=== PATIENT | female | born 1970 | race American Indian/Alaskan Native ===

== ENCOUNTER 2019-05-01 13:52 | Emergency (ER) | payer SELFPAY ==
[2019-05-01 14:22] VITALS: BP 123/69
--- NOTE | 2019-05-01 14:22 | Event Note ---
ED Screening Note ED Screening Note: lower back pain that began this morning this morning reaching in the closet and "felt something pop in the lower back" pt is ambulatory no numbness, weakness, no bowel/bladder incontinence pt states she is having urinary frequency PSHx partial hysterectomy This initial assessment/diagnostic orders/clinical plan/treatment(s) is/are subject to change based on patients health status, clinical progression and re- assessment by fellow clinical providers in the ED. Further treatment and workup at subsequent clinical providers discretion. Patient/guardian urged not to elope from the ED as their condition may be serious if not clinically assessed and managed. Initial orders include: UA, XR L-spine
--- NOTE | 2019-05-01 15:13 | XRay Report ---
Lumbosacral spine, 3 views INDICATION: Lower back pain for one day. COMPARISON: None. IMPRESSION: Normal alignment. Mild degenerative disc disease is identified at all levels. Moderate facet arthropathy with hypertrophy is noted at all levels. No acute osseous or soft tissue abnormali ty. Signer Name: Madi Mckoy Jr, MD Signed: 05/01/2019 3:08 PM Workstation Name: [id number]
[2019-05-01] MEDS ORDERED: MORPHINE IV ONE (15:16)
[2019-05-01] MEDS ORDERED: TORADOL IV ONE (15:16)
[2019-05-01] MEDS ORDERED: DECADRON IV ONE (15:16)
[2019-05-01 15:45] LABS: Bilirubin,Urine NEG (Negative); Blood,Urine NEG (Negative); Color,Urine Yellow (Yellow); Mucus,Urine 3+ /HPF; Urobilinogen,Urine < 2.0 mg/dL (<2.0)
--- NOTE | 2019-05-01 16:32 | Emergency Department Report ---
ED Back Pain/Injury HPI - General Chief Complaint: Back Pain/Injury Stated Complaint: BACK PAIN Time Seen by Provider: 05/01/19 14:21 Source: patient Limitations: No Limitations - History of Present Illness Initial Comments: Mrs. Mason is a very pleasant 48-year-old female without significant past medical history who injured her back today. While receiving over and bending d own to grab something off the floor of her car, she felt a pop in her back and had immediate pain. Lower central pain radiating to the sacrum. She is able to ambulate. However she has severe pain with position change. No previous history of back injury. No recent trauma. She denies fever, weight loss, drug use. Denies bowel or bladder incontinence. Pain is 10 out of 10 in severity. MD Complaint: back pain -: Sudden, This afternoon Similar Symptoms Previously: No Place: home Radiation: none Severity: severe Severity scale (0 -10): 10 Consistency: constant Worsens With: movement, sitting upright, walking Context: while lifting, turning/twisting, bending Associated Symptoms: denies other symptoms - Related Data Previous Rx's Medication Instructions Recorded Last Taken Type Cyclobenzaprine [Flexeril] 10 mg PO TID PRN #20 tablet 05/01/19 Unknown Rx Ibuprofen [Motrin 800 MG tab] 800 mg PO TID 4 Days #12 tablet 05/01/19 Unknown Rx oxyCODONE /ACETAMINOPHEN [Percocet 1 tab PO Q6HR PRN #10 tablet 05/01/19 Unknown Rx 5/325] Allergies Allergy/AdvReac Type Severity Reaction Status Date / Time No Known Allergies Allergy Unverified 05/01/19 14:23 ED Review of Systems ROS: Stated complaint: BACK PAIN Other details as noted in HPI Comment: All other systems reviewed and negative Constitutional: denies: fever, malaise Gastrointestinal: denies: abdominal pain, nausea, vomiting Musculoskeletal: back pain Neurological: denies: weakness, numbness, paresthesias ED Past Medical Hx - Past Medical History Previous Medical History?: Yes Additional medical history: slipped disc - Surgical History Past Surgical History?: Yes Hx Appendectomy: Yes Additional Surgical History: partial hysterectomy - Social History Smoking Status: Current Every Day Smoker Substance Use Type: Alcohol - Medications Home Medications: Home Medications Medication Instructions Recorded Confirmed Last Taken Type Cyclobenzaprine [Flexeril] 10 mg PO TID PRN #20 tablet 05/01/19 Unknown Rx Ibuprofen [Motrin 800 MG tab] 800 mg PO TID 4 Days #12 tablet 05/01/19 Unknown Rx oxyCODONE /ACETAMINOPHEN [Percocet 1 tab PO Q6HR PRN #10 tablet 05/01/19 Unknown Rx 5/325] ED Physical Exam - General Limitations: No Limitations General appearance: alert, in no apparent distress - Head Head exam: Present: atraumatic, normocephalic - Eye Eye exam: Present: normal appearance - ENT ENT exam: Present: mucous membranes moist - Neck Neck exam: Present: normal inspection, full ROM - Respiratory Respiratory exam: Present: normal lung sounds bilaterally. Absent: respiratory distress, wheezes, rales, rhonchi - Cardiovascular Cardiovascular Exam: Present: regular rate, normal rhythm, normal heart sounds. Absent: systolic murmur, diastolic murmur, rubs, gallop - GI/Abdominal GI/Abdominal exam: Present: soft, normal bowel sounds. Absent: distended, tenderness, guarding, rebound - Back Exam Back exam: Present: normal inspection, full ROM, muscle spasm, paraspinal tenderness. Absent: tenderness, CVA tenderness (R), CVA tenderness (L), vertebral tenderness - Neurological Exam Neurological exam: Present: alert, oriented X3 - Psychiatric Psychiatric exam: Present: normal affect, normal mood - Skin Skin exam: Present: warm, dry, intact, normal color. Absent: rash ED Course Vital Signs 05/01/19 14:21 Temperature 98.3 F Pulse Rate 84 Respiratory 18 Rate Blood Pressure 123/69 O2 Sat by Pulse 98 Oximetry ED Medical Decision Making - Medical Decision Making This is a pleasant 58-year-old female who presents with lower back strain while bending and twisting. She is neurologically intact without red flags such as trauma fever unexplained weight loss drug abuse. I have prescribed Percocet Ibuprofen and Flexeril. She received relief with IV analgesia in the emergency department. Critical care attestation.: If time is entered above; I have spent that time in minutes in the direct care of this critically ill patient, excluding procedure time. ED Disposition Clinical Impression: Back pain, Low back strain Disposition: TO HOME OR SELFCARE Is pt being admited?: No Does the pt Need Aspirin: No Condition: Stable Instructions: Low Back Strain (ED), Acute Low Back Pain (ED) Prescriptions: Cyclobenzaprine [Flexeril] 10 mg PO TID PRN #20 tablet PRN Reason: Muscle Spasm Ibuprofen [Motrin 800 MG tab] 800 mg PO TID 4 Days #12 tablet oxyCODONE /ACETAMINOPHEN [Percocet 5/325] 1 tab PO Q6HR PRN #10 tablet PRN Reason: Pain Referrals: [facility] [Outside] - 3-5 Days
[2019-05-01] MEDS ORDERED: PERCOCET 5/325 PO ONE (16:34)
== END 2019-05-01 16:46 | disposition home or self-care (01) ==
LOC: ED 13:52
DX: S39.012A Strain of muscle, fascia and tendon of lower back, initial encounter (principal); F17.200 Nicotine dependence, unspecified, uncomplicated; Z90.49 Acquired absence of other specified parts of digestive tract; Z90.710 Acquired absence of both cervix and uterus; Z79.899 Other long term (current) drug therapy; X50.0XXA Overexertion from strenuous movement or load, initial encounter; Y93.89 Activity, other specified; Y92.89 Other specified places as the place of occurrence of the external cause; Y99.8 Other external cause status
CPT/HCPCS: 72100; 81001; 96374; 96375; 99284; J1100; J1885; J2270

== ENCOUNTER 2021-06-14 15:57 | Emergency (ER) | payer SELFPAY ==
--- NOTE | 2021-06-14 18:39 | Emergency Department Report ---
ED Chest Pain HPI - General Chief Complaint: Extremity Injury, Lower Stated Complaint: BILATERAL LEG PAIN/EDEMA Time Seen by Provider: 06/14/21 18:31 Source: patient Mode of arrival: Ambulatory Limitations: Physical Limitation - History of Present Illness Initial Comments: 50-year-old -[place]yp[place] female patient without past medical history presents with complaints of bilateral leg swelling, worse on right x4 days. She also states she has had intermittent left-sided chest pain without shortness of breath for the past 2 days. She denies any current chest pain or family history or personal history of heart disease. She rates her pain as 8/10 in severity in her legs and denies skin changes. Patient also states she has had a few abnormal bruises palpable in her leg and her arms and does not recall injuring herself. Patient admits to a recent 45-hour car ride the day the leg swelling started. No prior history of DVT/PE/cancer, cough, hemoptysis, or hormone use per patient. Quality: aching - Related Data Previous Rx's Medication Instructions Recorded Last Taken Type Cyclobenzaprine [Flexeril] 10 mg PO TID PRN #20 tablet 05/01/19 Unknown Rx Ibuprofen [Motrin 800 MG tab] 800 mg PO TID 4 Days #12 tablet 05/01/19 Unknown Rx oxyCODONE /ACETAMINOPHEN [Percocet 1 tab PO Q6HR PRN #10 tablet 05/01/19 Unknown Rx 5/325] Allergies Allergy/AdvReac Type Severity Reaction Status Date / Time No Known Allergies Allergy Verified 06/14/21 16:00 Heart Score - HEART Score History: Slightly suspicious EKG: Normal Age: 45-65 Risk factors: 1-2 risk factors Troponin: < normal limit HEART Score: 2 - EKG Read Time Time EKG Completed: 18:50 EKG Read Time: 18:55 - Critical Actions Critical Actions: 0-3 pts:0.9-1.7%risk of adverse cardiac event.Candidate for discharge ED Review of Systems ROS: Stated complaint: BILATERAL LEG PAIN/EDEMA Other details as noted in HPI Constitutional: denies: chills, diaphoresis, fever, malaise, weakness Respiratory: denies: cough, shortness of breath Cardiovascular: chest pain. denies: palpitations, edema, syncope Gastrointestinal: denies: abdominal pain Neurological: denies: headache, weakness, numbness, paresthesias, abnormal gait Hematological/Lymphatic: denies: swollen glands ED Past Medical Hx - Past Medical History Previous Medical History?: No Additional medical history: slipped disc - Surgical History Hx Appendectomy: Yes Additional Surgical History: partial hysterectomy - Social History Smoking Status: Current Every Day Smoker Substance Use Type: Alcohol - Medications Home Medications: Home Medications Medication Instructions Recorded Confirmed Last Taken Type Cyclobenzaprine [Flexeril] 10 mg PO TID PRN #20 tablet 05/01/19 Unknown Rx Ibuprofen [Motrin 800 MG tab] 800 mg PO TID 4 Days #12 tablet 05/01/19 Unknown Rx oxyCODONE /ACETAMINOPHEN [Percocet 1 tab PO Q6HR PRN #10 tablet 05/01/19 Unknown Rx 5/325] ED Physical Exam - General Limitations: Physical Limitation General appearance: alert, in no apparent distress, obese - Head Head exam: Present: atraumatic, normocephalic - Eye Eye exam: Present: normal appearance. Absent: scleral icterus - Neck Neck exam: Present: normal inspection - Respiratory Respiratory exam: Present: normal lung sounds bilaterally. Absent: respiratory distress - Cardiovascular Cardiovascular Exam: Present: regular rate, normal rhythm. Absent: systolic murmur, diastolic murmur, rubs, gallop - Extremities Exam Extremities exam: Present: full ROM, calf tenderness (Bilateral, worse on right; mild right lower leg swelling noted without skin changes) - Back Exam Back exam: Present: full ROM - Neurological Exam Neurological exam: Present: alert, oriented X3, normal gait - Psychiatric Psychiatric exam: Present: normal affect, normal mood - Skin Skin exam: Present: warm, dry, intact, normal color, ecchymosis (2 small bruises noted to right anterior forearm; no bony tenderness noted). Absent: rash ED Course Vital Signs 06/14/21 16:05 Temperature 98.4 F Pulse Rate 79 Respiratory 20 Rate Blood Pressure 139/82 O2 Sat by Pulse 96 Oximetry ED Medical Decision Making - Lab Data Result diagrams: 06/14/21 19:12 06/14/21 19:12 Lab Results 06/14/21 06/14/21 06/14/21 Range/Units 19:12 19:12 19:12 WBC 7.0 (4.5-11.0) K/mm3 RBC 4.66 (3.65-5.03) M/mm3 Hgb 14.0 (10.1-14.3) gm/dl Hct 41.4 (30.3-42.9) % MCV 89 (79-97) fl MCH 30 (28-32) pg MCHC 34 (30-34) % RDW 15.6 H (13.2-15.2) % Plt Count 270 (140-440) K/mm3 Lymph % (Auto) 29.9 (13.4-35.0) % Donley % (Auto) 9.6 H (0.0-7.3) % Eos % (Auto) 1.6 (0.0-4.3) % Baso % (Auto) 1.0 (0.0-1.8) % Lymph # (Auto) 2.1 (1.2-5.4) K/mm3 Donley # (Auto) 0.7 (0.0-0.8) K/mm3 Eos # (Auto) 0.1 (0.0-0.4) K/mm3 Baso # (Auto) 0.1 (0.0-0.1) K/mm3 Seg Neutrophils % 57.9 (40.0-70.0) % Seg Neutrophils # 4.0 (1.8-7.7) K/mm3 Sodium 138 (137-145) mmol/L Potassium 3.9 (3.6-5.0) mmol/L Chloride 103.8 (98-107) mmol/L Carbon Dioxide 22 (22-30) mmol/L Anion Gap 16 mmol/L BUN 9 (7-17) mg/dL Creatinine 1.2 (0.6-1.2) mg/dL Estimated GFR 58 ml/min BUN/Creatinine Ratio 8 % Glucose 108 H (65-100) mg/dL Calcium 9.1 (8.4-10.2) mg/dL Total Bilirubin 0.40 (0.1-1.2) mg/dL AST 26 (5-40) units/L ALT 25 (7-56) units/L Alkaline Phosphatase 63 (35-129) units/L Troponin T < 0.010 (0.00-0.029) ng/mL NT-Pro-B Natriuret Pep 196.0 (0-900) pg/mL Total Protein 6.6 (6.3-8.2) g/dL Albumin 3.8 L (3.9-5) g/dL Albumin/Globulin Ratio 1.4 % - EKG Data EKG shows normal: sinus rhythm Rate: normal - EKG Data Interpretation: normal EKG - Radiology Data Radiology results: report reviewed CHEST 2 VIEWS INDICATION / CLINICAL INFORMATION: chest pain. COMPARISON: None available. FINDINGS: SUPPORT DEVICES: None. HEART / MEDIASTINUM: No significant abnormality. LUNGS / PLEURA: No significant pulmonary or pleural abnormality. No pneumothorax. ADDITIONAL FINDINGS: No significant additional findings. IMPRESSION: 1. No acute findings. - Medical Decision Making 50-year-old -[place] female patient without past medical history presents with complaints of bilateral leg swelling, worse on right x4 days. She also states she has had intermittent left-sided chest pain without shortness of breath for the past 2 days. She denies any current chest pain or family history or personal history of heart disease. She rates her pain as 8/10 in severity in her legs and denies skin changes. Patient also states she has had a few abnormal bruises palpable in her leg and her arms and does not recall injuring herself. Patient admits to a recent 45-hour car ride the day the leg swelling started. No prior history of DVT/PE/cancer, cough, hemoptysis, or hormone use per patient. Ultrasound is negative for any DVT. No acute abnormalities are noted on CBC. Minimally decreased GFR noted at 58 with normal creatinine on CMP. Chest x-ray is normal. EKG is negative for any acute abnormalities. Heart score = 2. Patient is well-appearing and continues to deny chest pain. She is stable for discharge home. Recommend follow-up with primary care and cardiology within 2 to 3 days. Discussed treatment instructions for peripheral edema. Strict return precautions were discussed in detail patient verbalizes understanding. Critical care attestation.: If time is entered above; I have spent that time in minutes in the direct care of this critically ill patient, excluding procedure time. ED Disposition Clinical Impression: Bilateral lower extremity edema, Intermittent chest pain Disposition: 01 HOME / SELF CARE / HOMELESS Is pt being admited?: No Condition: Stable Instructions: Nonspecific Chest Pain, Adult, Peripheral Edema Additional Instructions: There are no blood clots noted on the ultrasound of your legs. Please purchase compression hose and wear daily. Elevate your legs as much as possible to reduce the swelling Referrals: [facility] [Provider Group] - 2-3 Days [facility] [Provider Group] - 3-5 Days Forms: Work/School Release Form(ED)
--- NOTE | 2021-06-14 19:22 | XRay Report ---
CHEST 2 VIEWS INDICATION / CLINICAL INFORMATION: chest pain. COMPARISON: None available. FINDINGS: SUPPORT DEVICES: None. HEART / MEDIASTINUM: No significant abnormality. LUNGS / PLEURA: No significant pulmonary or pleural abnormality. No pneumothorax. ADDITIONAL FINDINGS: No significant additional findings. IMPRESSION: 1. No acute findings. Signer Name: Mario Alberto Curiel MD Signed: 06/14/2021 7:17 PM Workstation Name: [id number]
[2021-06-14 19:46] LABS: Basophils # (Auto) 0.1 K/mm3 (0.0-0.1); Eosinophils # (Auto) 0.1 K/mm3 (0.0-0.4); Eosinophils % (Auto) 1.6 % (0.0-4.3); Hematocrit 41.4 % (30.3-42.9); Lymphocytes # (Auto) 2.1 K/mm3 (1.2-5.4); Lymphocytes % (Auto) 29.9 % (13.4-35.0); Mean Corpuscular HGB Conc 34 % (30-34); Mean Corpuscular Volume 89 fl (79-97); Monocytes # (Auto) 0.7 K/mm3 (0.0-0.8); Monocytes % (Auto) 9.6 % (0.0-7.3); Platelet Count 270 K/mm3 (140-440); Red Blood Count 4.66 M/mm3 (3.65-5.03); Red Cell Distribution Width 15.6 % (13.2-15.2)
[2021-06-14 19:59] LABS: Alanine Aminotransferase 25 units/L (7-56); Albumin 3.8 g/dL (3.9-5); BUN/Creatinine Ratio 8; Blood Urea Nitrogen 9 mg/dL (7-17); Calcium 9.1 mg/dL (8.4-10.2); Hemolysis Index 28
--- NOTE | 2021-06-14 21:30 | Vascular Lab Report ---
DUPLEX DOPPLER LOWER EXTREMITY VEINS, BILATERAL INDICATION / CLINICAL INFORMATION: pain and swelling, worse on right side. TECHNIQUE: Duplex doppler imaging was performed through the veins of both lower extremities using jessica ous compression and other maneuvers. COMPARISON: None available. FINDINGS: RIGHT COMMON FEMORAL VEIN: Negative. RIGHT FEMORAL VEIN: Negative. RIGHT POPLITEAL VEIN: Negative. RIGHT CALF VEINS: Negative. LEFT COMMON FEMORAL VEIN: Negative. LEFT FEMORAL VEIN: Negative. LEFT POPLITEAL VEIN: Negative. LEFT CALF VEINS: Negative. ADDITIONAL FINDINGS: None. IMPRESSION: 1. No sonographic evidence for DVT in either lower extremity. Signer Name: Washington Sauceda MD Signed: 06/14/2021 9:25 PM Workstation Name: [id number]
[2021-06-14 21:35] VITALS: BP 158/89
--- NOTE | 2021-06-16 11:45 | Electrocardiograph Report ---
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
== END 2021-06-14 21:35 | disposition home or self-care (01) ==
LOC: ED 15:57
DX: R60.0 Localized edema (principal); R07.89 Other chest pain; Z90.710 Acquired absence of both cervix and uterus; F17.200 Nicotine dependence, unspecified, uncomplicated; F10.20 Alcohol dependence, uncomplicated
CPT/HCPCS: 36415; 71046; 80053; 83880; 84484; 85025; 93005; 93970; 99284